=== PATIENT | female | born 1990 | race Asian ===

== ENCOUNTER → 2018-08-23 17:05 | Outpatient (CLI) | payer OTHER, SELFPAY ==
--- NOTE | 2018-08-23 17:09 | DI.RAD.S_ITS ---
PROCEDURE: XR HAND RT MIN 3V INDICATIONS: r hand pain TECHNIQUE: 3 views of the hand(s) acquired. COMPARISON: None. FINDINGS: Bones: No fractures or dislocations. Carpal bones are normally aligned. No suspicious bony lesions. Soft tissues: No suspicious soft tissue calcifications. IMPRESSION: No fracture or dislocation. If clinical symptoms persist or clinical suspicion for pathology is high, a repeat examination in 7-10 days. Dictated by: Neil Villa M.D. on 08/23/2018 at 21:00 Approved by: Neil Villa M.D. on 08/23/2018 at 21:00
--- NOTE | 2018-08-23 17:09 | DI.RAD.S_ITS ---
PROCEDURE: XR PELVIS 1-2V INDICATIONS: right hip pain TECHNIQUE: 1 view(s) of the pelvis acquired. COMPARISON: None. FINDINGS: Bones: No fractures or dislocations. No suspicious bony lesions. Soft tissues: Visualized bowel gas pattern is normal. No suspicious soft tissue calcifications. IMPRESSION: No fracture or dislocation. Dictated by: Neil Villa M.D. on 08/23/2018 at 20:58 Approved by: Neil Villa M.D. on 08/23/2018 at 20:58
--- NOTE | 2018-08-23 17:09 | DI.RAD.S_ITS ---
PROCEDURE: XR ELBOW RT MIN 3V INDICATIONS: elbow pain TECHNIQUE: 3 views of the elbow were acquired. COMPARISON: None. FINDINGS: Bones: No fractures or dislocations. No suspicious bony lesions. Soft tissues: No elbow joint effusion. No suspicious soft tissue calcifications. IMPRESSION: No fracture or dislocation. If clinical symptoms persist or clinical suspicion for pathology is high, a repeat examination in 7-10 days, or advanced imaging such as CT or MRI is suggested for further evaluation. Dictated by: Neil Villa M.D. on 08/23/2018 at 20:58 Approved by: Neil Villa M.D. on 08/23/2018 at 20:59
== END ==
PROVIDERS: Visit Provider Physician Assistant
DX: M79.641 Pain in right hand (principal); M25.521 Pain in right elbow; M25.551 Pain in right hip
CPT/HCPCS: 72170; 73080; 73130